=== PATIENT | male | born 1980 | race Asian ===

== ENCOUNTER 2024-06-02 09:04 | Outpatient (REF) | payer OTHER, SELFPAY ==
--- NOTE | ~2024-06-02 | MR_ITS ---
EXAMINATION: MR SHOULDER WITHOUT CONTRAST, RIGHT CLINICAL INFORMATION: Right shoulder pain. Suspect labral tear. COMPARISON: None available. TECHNIQUE: MRI of the shoulder without contrast was performed on a high-field scanner. FINDINGS: ROTATOR CUFF: Moderate supraspinatus tendinosis with an anterior full thickness partial tear measuring approximately 1.6 x 1.3 cm (AP x ML). Moderate infraspinatus tendinosis with bursal surface fraying. Moderate subscapularis tendinosis with distal intrasubstance partial tearing measuring up to 1.2 cm in ML dimension. No muscle atrophy or fatty infiltration. BICEPS: Intact. Articular cartilage loss with subchondral cystic change along the underlying lesser tuberosity. CORACOACROMIAL ARCH: The undersurface of the acromion is curved with anterior and lateral subacromial spurring. Mild acromioclavicular arthrosis. LABRUM/CAPSULE: Linear fluid signal within the undersurface of the superior, posterosuperior, and posterior labrum, consistent with nondisplaced undersurface tearing. Intact inferior joint capsule. GLENOHUMERAL JOINT/MARROW: Intact articular cartilage. No acute osseous injury. Degenerative cystic change within the greater tuberosity. Trace glenohumeral joint effusion. MR/MR shoulder RT wo con IMPRESSION: 1. Moderate supraspinatus tendinosis with an anterior full thickness partial tear measuring 1.6 x 1.3 cm (AP x ML). Moderate infraspinatus tendinosis with bursal surface fraying. Moderate subscapularis tendinosis with distal intrasubstance partial tearing. 2. Mild acromioclavicular arthrosis with anterior and lateral subacromial spurring. 3. Nondisplaced undersurface tearing of the superior, posterosuperior, and posterior labrum. Trace glenohumeral joint effusion. Electronically signed by: Santos Clancy MD 06/03/2024 08:36 PM EDT
== END 2024-06-02 09:05 | disposition home or self-care (01) ==
LOC: HO.MRI 09:04
PROVIDERS: PCP Internal Medicine; Visit Provider Internal Medicine
DX: M25.511 Pain in right shoulder (principal)
CPT/HCPCS: 73221